=== PATIENT | female | born 1950 ===

== ENCOUNTER 2021-08-22 11:06 | Inpatient (IN) | payer MEDICARE, OTHER ==
[~2021-08-22] VITALS: Ht 163.8 cm; Wt 93.9 kg
[2021-08-22] MEDS ORDERED: ZINC SULFATE 220mg CAP or TAB PO ONE (11:30)
[2021-08-22] MEDS ORDERED: CHOLECALCIFEROL (VITD3) 2,000 UNIT CAP/TAB PO ONE (11:30)
[2021-08-22] MEDS ORDERED: methylPREDNISolone SOD SUCC 125 MG/2 ML VL IV ONE (11:30)
[2021-08-22] MEDS ORDERED: AZITHROMYCIN 500MG/ 250ML 250 ML IV ONE (11:30)
[2021-08-22] MEDS ORDERED: ASCORBIC ACID 500 MG TAB PO ONE (11:30)
[2021-08-22 12:02] LABS: Basophils # (auto) 0 10 ^3/uL (0-0.2); Basophils % (auto) 0.2 % (0.0-2.0); Eosinophils # (auto) 0 10 ^3/uL (0-0.8); Hematocrit 37.3 % (36.0-46.0); Hemoglobin 12.6 g/dL (12.2-16.2); Lymphocytes # (auto) 0.9 10 ^3/uL (0.4-5.4); Lymphocytes % (auto) 25.6 % (10.0-50.0); Mean Corpuscular Hgb Conc. 33.9 g/dL (32.0-36.0); Mean Corpuscular Volume 85.6 fL (80.0-100.0); Monocytes # (auto) 0.3 10 ^3/uL (0-1.3); Monocytes % (auto) 8.9 % (0.0-12.0); Neutrophils # (auto) 2.2 10 ^3/uL (1.6-8.6); Neutrophils % (auto) 65.3 % (37.0-80.0); Nucleated Red Blood Cells % 0.2 %; Red Blood Cells 4.36 10^6/uL (4.0-5.20); Red Cell Distribution Width 13.7 % (11.8-14.3); White Blood Cell 3.4 10^3/uL (4.4-10.8)
[2021-08-22 12:16] LABS: Albumin 2.8 g/dL (3.4-5.0); BUN/Creatinine Ratio 11.7; Potassium 3.4 mmol/L (3.5-5.1)
[2021-08-22 12:26] LABS: Bilirubin, Total 0.4 mg/dL (0.2-1.0); Total Protein 6.7 g/dL (6.4-8.2)
[2021-08-22 12:30] LABS: CRP High Sensitivity 5.33 mg/dL (< 0.3)
[2021-08-22] MEDS ORDERED: MORPHINE SULFATE INJECTION 2 MG/ML SYRG IV PRN (15:30)
[2021-08-22] MEDS ORDERED: ACETAMINOPHEN 325 MG TAB PO PRN (15:30)
[2021-08-22] MEDS ORDERED: DOCUSATE SOD 100 MG CAP PO PRN (15:30)
[2021-08-22] MEDS ORDERED: ONDANSETRON HCL 4 MG/2 ML VIAL IV PRN (15:30)
[2021-08-22] MEDS ORDERED: NITROGLYCERIN 0.4 MG SL TAB SL PRN (15:30)
[2021-08-22] MEDS ORDERED: ALUM & MAG HYDROX-SIMETH LIQ(MAALOX) 30 ML PO PRN (15:30)
[2021-08-22 17:50] VITALS: BP 111/70
[2021-08-22] MEDS ORDERED: REMDESIVIR PER PHARMACY 0 ML IV SCH (19:45)
[2021-08-22] MEDS ORDERED: LOSA-39 PO (20:20)
[2021-08-22] MEDS ORDERED: HYDR50TA15 PO (20:20)
[2021-08-22] MEDS ORDERED: CLON0.1D7 TOP (20:20)
[2021-08-22] MEDS ORDERED: ROSU1TAB14 PO (20:20)
[2021-08-22] MEDS ORDERED: TRAZ50TA2 PO (20:20)
[2021-08-22] MEDS ORDERED: HYDR25TA5 PO (20:20)
[2021-08-22] MEDS ORDERED: POTA1TAB4 (20:20)
[2021-08-22] MEDS ORDERED: AMLO-496 PO (20:20)
[2021-08-22] MEDS: ENOXAPARIN SOD 40 MG/0.4 ML SYRINGE SC SCH ×2 (20:50→20:56)
[2021-08-22 22:00] VITALS: BP 116/59
[2021-08-22] MEDS ORDERED: TEMAZEPAM 15 MG CAP PO ONE (22:45)
[2021-08-22] MEDS: TEMAZEPAM 15 MG CAP PO ONE ×2 (23:05→23:21)
[2021-08-23 05:00] VITALS: BP 118/63
[2021-08-23 09:00] VITALS: BP 111/59
[2021-08-23] MEDS: DexAMETHasone SOD PHOS 10MG/1ML VIAL INJ IV SCH (10:57)
[2021-08-23] MEDS: CHOLECALCIFEROL (VITD3) 1,000UNIT=25mCg TAB PO SCH (10:58)
[2021-08-23] MEDS: ENOXAPARIN SOD 40 MG/0.4 ML SYRINGE SC SCH ×2 (10:58→20:46)
[2021-08-23] MEDS: ASCORBIC ACID 500 MG TAB PO SCH (10:58)
[2021-08-23] MEDS: ZINC SULFATE 220mg CAP or TAB PO SCH (10:58)
[2021-08-23 13:00] VITALS: BP 127/82
[2021-08-23] MEDS ORDERED: REMDESIVIR 200 MG in NS 210ml LOADING DOSE ADULT IV ONE (15:00)
[2021-08-23 17:00] VITALS: BP 114/70
[2021-08-23] MEDS ORDERED: guaiFENesin-DM 100/10mg/5ml SYR PO PRN (17:30)
[2021-08-23 22:00] VITALS: BP 112/80
[2021-08-24 05:00] VITALS: BP 123/76
[2021-08-24 07:35] LABS: Basophils # (auto) 0 10 ^3/uL (0-0.2); Basophils % (auto) 0.1 % (0.0-2.0); Eosinophils # (auto) 0 10 ^3/uL (0-0.8); Hematocrit 37.9 % (36.0-46.0); Hemoglobin 12.6 g/dL (12.2-16.2); Lymphocytes # (auto) 0.5 10 ^3/uL (0.4-5.4); Lymphocytes % (auto) 4.8 % (10.0-50.0); Mean Corpuscular Hemoglobin 28.8 pg (28.0-32.0); Mean Corpuscular Hgb Conc. 33.3 g/dL (32.0-36.0); Mean Corpuscular Volume 86.6 fL (80.0-100.0); Monocytes # (auto) 0.5 10 ^3/uL (0-1.3); Monocytes % (auto) 5.3 % (0.0-12.0); Neutrophils # (auto) 9.1 10 ^3/uL (1.6-8.6); Neutrophils % (auto) 89.8 % (37.0-80.0); Red Blood Cells 4.37 10^6/uL (4.0-5.20); Red Cell Distribution Width 13.4 % (11.8-14.3); White Blood Cell 10.1 10^3/uL (4.4-10.8)
[2021-08-24 07:48] LABS: INR 0.95 (0.9-1.15)
[2021-08-24 08:04] LABS: Potassium 3.8 mmol/L (3.5-5.1)
[2021-08-24 08:13] LABS: Albumin 2.9 g/dL (3.4-5.0); BUN/Creatinine Ratio 31.8; Bilirubin, Total 0.3 mg/dL (0.2-1.0); Calcium 8.9 mg/dL (8.5-10.1); Magnesium 3.2 mg/dL (1.6-2.6); Total Protein 6.4 g/dL (6.4-8.2)
[2021-08-24] MEDS: ZINC SULFATE 220mg CAP or TAB PO SCH (08:39)
[2021-08-24] MEDS: IVERMECTIN 3 MG TAB PO SCH (08:39)
[2021-08-24] MEDS: DexAMETHasone SOD PHOS 10MG/1ML VIAL INJ IV SCH (08:39)
[2021-08-24] MEDS: ASCORBIC ACID 500 MG TAB PO SCH (08:39)
[2021-08-24] MEDS: CHOLECALCIFEROL (VITD3) 1,000UNIT=25mCg TAB PO SCH (08:39)
[2021-08-24] MEDS: ENOXAPARIN SOD 40 MG/0.4 ML SYRINGE SC SCH ×2 (08:40→21:29)
[2021-08-24 09:00] VITALS: BP 117/70
[2021-08-24 13:00] VITALS: BP 112/73
[2021-08-24] MEDS ORDERED: REMDESIVIR 100mg 100 MG in SODIUM CHL 0.9% 230 ML IV SCH (15:00)
[2021-08-24] MEDS ORDERED: DEXTROSE (50%) 50ML SYRG IV PRN (16:30)
[2021-08-24] MEDS: InsuLIN REG 1unit/0.01ml Soln (100units/ml) SC SCH (18:00)
[2021-08-24] MEDS: ACCU-CHEK COMFORT CURVE STRIP VI SCH (18:04)
[2021-08-24] MEDS: HYDROcodone-ACET 5/325MG TAB PO PRN (21:34)
[2021-08-24 22:00] VITALS: BP 125/69
[2021-08-25] MEDS: ACCU-CHEK COMFORT CURVE STRIP VI SCH ×5 (00:09→23:59)
[2021-08-25 05:00] VITALS: BP 114/64
[2021-08-25] MEDS: InsuLIN REG 1unit/0.01ml Soln (100units/ml) SC SCH ×5 (05:50→23:59)
[2021-08-25 07:07] LABS: Potassium 3.7 mmol/L (3.5-5.1)
[2021-08-25 07:22] LABS: Albumin 2.6 g/dL (3.4-5.0); BUN/Creatinine Ratio 35.1; Bilirubin, Total 0.3 mg/dL (0.2-1.0); Calcium 8.8 mg/dL (8.5-10.1); Total Protein 5.8 g/dL (6.4-8.2)
[2021-08-25 08:00] VITALS: BP 134/72
[2021-08-25 09:00] VITALS: BP 134/72
[2021-08-25] MEDS: DexAMETHasone SOD PHOS 10MG/1ML VIAL INJ IV SCH (10:41)
[2021-08-25] MEDS: ENOXAPARIN SOD 40 MG/0.4 ML SYRINGE SC SCH ×2 (10:41→22:01)
[2021-08-25] MEDS: CHOLECALCIFEROL (VITD3) 1,000UNIT=25mCg TAB PO SCH (10:42)
[2021-08-25] MEDS: ZINC SULFATE 220mg CAP or TAB PO SCH (10:42)
[2021-08-25] MEDS: ASCORBIC ACID 500 MG TAB PO SCH (10:42)
[2021-08-25] MEDS: IVERMECTIN 3 MG TAB PO SCH (10:42)
[2021-08-25 22:00] VITALS: BP 143/96
[2021-08-25] MEDS: HYDROcodone-ACET 5/325MG TAB PO PRN (23:46)
[2021-08-26 05:50] VITALS: BP 141/73
[2021-08-26] MEDS: ACCU-CHEK COMFORT CURVE STRIP VI SCH ×2 (05:52→12:00)
[2021-08-26] MEDS: InsuLIN REG 1unit/0.01ml Soln (100units/ml) SC SCH ×2 (05:52→12:00)
[2021-08-26 09:00] VITALS: BP 132/66
[2021-08-26] MEDS: DexAMETHasone SOD PHOS 10MG/1ML VIAL INJ IV SCH (10:06)
[2021-08-26] MEDS: ZINC SULFATE 220mg CAP or TAB PO SCH (10:07)
[2021-08-26] MEDS: IVERMECTIN 3 MG TAB PO SCH (10:07)
[2021-08-26] MEDS: CHOLECALCIFEROL (VITD3) 1,000UNIT=25mCg TAB PO SCH (10:08)
[2021-08-26] MEDS: ENOXAPARIN SOD 40 MG/0.4 ML SYRINGE SC SCH (10:08)
[2021-08-26] MEDS: ASCORBIC ACID 500 MG TAB PO SCH (10:08)
[2021-08-26] MEDS ORDERED: FAMO20TA10 PO (12:06)
[2021-08-26] MEDS ORDERED: ASPI-378 PO (12:06)
[2021-08-26] MEDS ORDERED: ALBUAER3 IN (12:06)
[2021-08-26] MEDS ORDERED: DEX4T PO (12:06)
[2021-08-26] MEDS ORDERED: CHOL20007 PO (12:06)
[2021-08-26] MEDS ORDERED: ZINC220T6 PO (12:06)
[2021-08-26] MEDS ORDERED: ASCO500T11 PO (12:06)
[2021-08-26] MEDS ORDERED: BUDE2SUS3 IN (12:06)
[2021-08-26 13:00] VITALS: BP 150/93
[2021-08-26] MEDS ORDERED: DOXY-286 PO (14:08)
== END 2021-08-26 16:15 | disposition home or self-care (01) | DRG 871 ==
LOC: ER 11:06 → EDBD 11:06 → EAST 15:27 → TELE-EAST 17:54
PROVIDERS: ADMIT Internal Medicine; ATTEND Internal Medicine
DX: A41.89 Other specified sepsis (principal); U07.1 COVID-19; J96.01 Acute respiratory failure with hypoxia; J12.82 Pneumonia due to coronavirus disease 2019; D89.839 Cytokine release syndrome, grade unspecified; E88.09 Other disorders of plasma-protein metabolism, not elsewhere classified; E87.6 Hypokalemia; R73.9 Hyperglycemia, unspecified; Z53.29 Procedure and treatment not carried out because of patient's decision for other reasons; I11.9 Hypertensive heart disease without heart failure; R73.03 Prediabetes; Z86.73 Personal history of transient ischemic attack (TIA), and cerebral infarction without residual deficits; Z87.891 Personal history of nicotine dependence; Z83.3 Family history of diabetes mellitus
CPT/HCPCS: 36415; 36600; 70450; 71045; 80053; 80061; 82306; 82728; 82805; 82962; 83036; 83615; 83735; 84443; 84484; 85025; 85379; 85610; 86141; 87426; 93005; 93970; 96365; 96375; G0378; J1100